=== PATIENT | male | born 1950 | race Caucasian/White ===

== ENCOUNTER 2018-04-17 13:29 | Outpatient (CLI) | payer BC ==
--- NOTE | 2018-04-17 15:14 | XRAY Report ---
TWO VIEW LUMBAR SPINE: 04/17/2018 CLINICAL INDICATION: Left pain. FINDINGS: Frontal and lateral views of the lumbar spine demonstrate moderate degenerative disk and facet disease. There is no evidence of fracture or subluxation. The bowel gas pattern is normal. IMPRESSION: MODERATE DEGENERATIVE CHANGES. TD: 04/17/2018 15:04
--- NOTE | 2018-04-17 15:14 | XRAY Report ---
LEFT HIP AND PELVIS: 04/17/2018 CLINICAL INDICATION: Left hip pain. FINDINGS: Frontal view of the hips and pelvis and frogleg lateral view of the left hip demonstrate mild osteoarthritis. There is no evidence of fracture. No foreign body is seen in the soft tissues. IMPRESSION: MILD LEFT HIP OSTEOARTHRITIS. TD: 04/17/2018 15:05
== END 2018-04-17 13:30 | disposition home or self-care (01) ==
LOC: DI 13:29
PROVIDERS: ATTEND Physician Assistant
DX: M51.36 Other intervertebral disc degeneration, lumbar region (principal); M47.896 Other spondylosis, lumbar region; M16.12 Unilateral primary osteoarthritis, left hip
CPT/HCPCS: 72100

== ENCOUNTER 2018-05-29 10:02 | Outpatient (CLI) | payer BC ==
[2018-05-29 11:35] LABS: HB2 TOTAL 15.4 g/dL; HEMOGLOBIN A1C 0.7 g/dL; HEMOGLOBIN A1C % 6.3 % (4.6-6.2)
[2018-05-30 13:57] LABS: HEPATITIS C ANTIBODY NON-REACTIVE (NON-REACTIVE)
== END 2018-05-29 10:03 | disposition home or self-care (01) ==
LOC: LAB 10:02
PROVIDERS: ATTEND Family Medicine
DX: E11.9 Type 2 diabetes mellitus without complications (principal); Z11.59 Encounter for screening for other viral diseases
CPT/HCPCS: 36415; 82043; 83036; 86803

== ENCOUNTER 2019-04-11 09:39 | Outpatient (CLI) | payer BC ==
[2019-04-11 10:13] LABS: ALBUMIN 3.7 g/dL (3.2-5.5); ALBUMIN/GLOBULIN RATIO 1.1 (1.0-2.2); BILIRUBIN,TOTAL 0.6 mg/dL (0.2-1.0); CALCIUM 9.2 mg/dL (8.5-10.3); CREATININE 1.1 mg/dL (0.6-1.2); TOTAL PROTEIN 7.1 g/dL (6.7-8.2)
[2019-04-11 10:17] LABS: HB2 TOTAL 14.9 g/dL; HEMOGLOBIN A1C 0.78 g/dL; HEMOGLOBIN A1C % 6.9 % (4.6-6.2)
== END 2019-04-11 09:40 | disposition home or self-care (01) ==
LOC: LAB 09:39
PROVIDERS: ATTEND Physician Assistant
DX: E11.65 Type 2 diabetes mellitus with hyperglycemia (principal); Z79.4 Long term (current) use of insulin
CPT/HCPCS: 36415; 80053; 83036

== ENCOUNTER 2019-04-19 08:45 | Outpatient (CLI) | payer BC | END 2019-04-19 08:46 | disposition home or self-care (01) | LOC: RT 08:45 | PROVIDERS: ATTEND Colon & Rectal Surgery | DX: Z01.810 Encounter for preprocedural cardiovascular examination (principal); C20 Malignant neoplasm of rectum | CPT/HCPCS: 93005 ==

== ENCOUNTER 2019-04-24 10:38 | Outpatient (CLI) | payer BC ==
[2019-04-24 11:23] LABS: HGB - HEMOGLOBIN 13.7 g/dL (14.0-18.0)
[2019-04-24 11:44] LABS: % IRON SATURATION 13 % (20-50); IRON 62 ug/dL (45-182); TOTAL IRON BINDING CAPACITY 466 ug/dL (250-450); TRANSFERRIN 333 mg/dL (180-329)
== END 2019-04-24 10:39 | disposition home or self-care (01) ==
LOC: LAB 10:38
PROVIDERS: ATTEND Colon & Rectal Surgery
DX: C20 Malignant neoplasm of rectum (principal)
CPT/HCPCS: 36415; 82728; 83540; 84466; 85014; 85018

== ENCOUNTER 2019-12-20 09:35 | Outpatient (CLI) | payer BC ==
[2019-12-20 10:36] LABS: HB2 TOTAL 13.9 g/dL; HEMOGLOBIN A1C 0.87 g/dL; HEMOGLOBIN A1C % 7.9 % (4.6-6.2)
[2019-12-20 10:38] LABS: CREATININE,URINE 132.7 mg/dL; MICROALBUM/CREATININE RATIO,UR 12.1 ug/mg (<30.0); MICROALBUMIN,URINE 1.6 mg/dL (0-300.0)
[2019-12-20 10:39] LABS: ALBUMIN 3.8 g/dL (3.2-5.5); ALBUMIN/GLOBULIN RATIO 1.1 (1.0-2.2); ALKALINE PHOSPHATASE 49 IU/L (42-121); ALT ALANINE AMINOTRANSFERASE 36 IU/L (10-60); AST ASPARTATE AMINOTRANSFERASE 28 IU/L (10-42); BILIRUBIN,TOTAL 0.7 mg/dL (0.2-1.0); BUN - BLOOD UREA NITROGEN 23 mg/dL (6-20); CARBON DIOXIDE - CO2 26 mmol/L (21-32); CHLORIDE 100 mmol/L (101-111); CHOL/HDL RATIO 5.3 (<5.0); CHOLESTEROL 154 mg/dL; GFR - MDRD 75 (>89); GLUCOSE 126 mg/dL (70-100); HDL CHOLESTEROL 29 mg/dL; LDL CHOLESTEROL,CALCULATED 81 mg/dL; LDL/HDL RATIO 2.8 (<3.6); SODIUM 137 mmol/L (135-145); TOTAL PROTEIN 7.2 g/dL (6.7-8.2); VLDL CHOLESTEROL 44 mg/dL
== END 2019-12-20 09:36 | disposition home or self-care (01) ==
LOC: LAB 09:35
PROVIDERS: ATTEND Physician Assistant
DX: E11.65 Type 2 diabetes mellitus with hyperglycemia (principal); I10 Essential (primary) hypertension; E78.5 Hyperlipidemia, unspecified
CPT/HCPCS: 36415; 80053; 80061; 82043; 82570; 83036; 83721

== ENCOUNTER 2020-01-28 08:13 | Outpatient (CLI) | payer BC ==
--- NOTE | 2020-01-29 11:57 | Ultrasound Report ---
Reason: SCREENING FOR AAA Procedure Date: 01/28/2020 Accession Number: [id number] / [id number] Procedure: US - Aorta Screening CPT Code: Final Report FULL RESULT: EXAM: AORTIC DOPPLER ULTRASOUND EXAM DATE: 01/28/2020 08:39 AM. CLINICAL HISTORY: Screening for AAA. COMPARISON: None. TECHNIQUE: Real-time sonographic imaging of retroperitoneal vascular structures, including color-flow, Doppler flow and spectral analysis was performed by the filament maker. Multiple customer field representative static images were saved for review. FINDINGS: Aorta: The abdominal aorta was adequately visualized. No evidence for abdominal aortic aneurysm. Aorta: Proximal: Sagittal AP 2.4 cm. Mid: Transverse 1.9 x 2.3 cm. Distal: Transverse 1.6 x 1.5 cm. Caliber: WNL: Yes. Plaque visualized: Yes. Iliacs: Right Iliac: Transverse 1.2 x 1.2 cm. Left Iliac: Transverse 1.2 x 1.4 cm. Iliac Vessels: The visualized proximal common iliac arteries are normal in caliber. Other: Echogenic probably fatty liver. IMPRESSION: No abdominal aortic aneurysm. RADIA
== END 2020-01-28 08:14 | disposition home or self-care (01) ==
LOC: DI 08:13
PROVIDERS: ATTEND Family Medicine
DX: Z13.6 Encounter for screening for cardiovascular disorders (principal)
CPT/HCPCS: 76706

== ENCOUNTER 2021-02-17 12:38 | Outpatient (CLI) | payer BC ==
--- OUTSIDE RECORDS SUMMARY | 2021-02-24 01:11 | EXTERNAL MEDICAL SUMMARY RPT | Continuity of Care Document ---
:1950 Demographics Phone Unavailable Preferred Language Unknown Marital Status Unknown Evangelical Affiliation Unknown Race Unknown Ethnic Group Unknown Author Organization [facility] Address [address] [phone] Phone Social History date description facility [phone]
== END 2021-02-17 12:39 | disposition critical access hospital (66) ==
LOC: EMS 12:38
PROVIDERS: ATTEND Emergency Medicine
DX: R55 Syncope and collapse (principal)
CPT/HCPCS: A0425; A0427

== ENCOUNTER 2021-02-17 13:01 | Emergency (ER) | payer BC ==
[2021-02-17 13:12] VITALS: BP 152/81
--- NOTE | 2021-02-17 13:19 | ED Physician Documentation ---
PD HPI SYNCOPE - Stated complaint Stated Complaint: SYNCOPE - Chief complaint Chief Complaint: Neuro - History obtained from History obtained from: Patient - Additional information Additional information: [id number]. He was in his usual state of health today running errands and had just walked in from the [employer] store having. A battery. On his way into the truck he started to feel dizzy, light sensitive, and then had a syncopal episode with cold sweats. Now feels pretty much back to normal. There is no associated chest pain. He does note exertional dyspnea over the last weeks or so. Review of Systems Ten Systems: 10 systems reviewed and negative Constitutional: reports: Sweats Cardiac: denies: Chest pain / pressure, Palpitations, Pedal edema, Calf pain Respiratory: reports: Dyspnea. denies: Cough, Hemoptysis, Wheezing PD PAST MEDICAL HISTORY - Allergies Allergies/Adverse Reactions: Allergies Allergy/AdvReac Type Severity Reaction Status Date / Time No Known Drug Allergies Allergy Verified 02/17/21 13:07 PD ED PE NORMAL - Vitals Vital signs reviewed: Yes - General General: Alert and oriented X 3, No acute distress - HEENT HEENT: PERRL, EOMI - Neck Neck: Supple, no meningeal sign, No bony TTP - Cardiac Cardiac: RRR, Other (3 out of 6 decrescendo blowing holosystolic murmur heard best at the apex) - Respiratory Respiratory: No respiratory distress, Clear bilaterally - Abdomen Abdomen: Soft, Non tender - Back Back: No CVA TTP, No spinal TTP - Derm Derm: Normal color, Warm and dry - Extremities Extremities: No edema, No calf tenderness / cord - Neuro Neuro: Alert and oriented X 3, Normal speech Results - Vitals Vitals: Vital Signs - 24 hr 02/17/21 13:07 Temperature 36.5 C Heart Rate 91 Respiratory 24 Rate Blood Pressure 152/81 H O2 Saturation 96 Oxygen O2 Source Room air - EKG (time done) 1327 Rate: Rate (enter#) (90) Rhythm: NSR (w pvcs) [place]: RAD Intervals: Normal MT QRS: Normal Ischemia: Normal ST segments - Labs Labs: Laboratory Tests 02/17/21 02/17/21 02/17/21 14:30 14:30 14:30 WBC 12.0 H RBC 4.95 Hgb 13.4 L Hct 41.7 L MCV 84.2 MCH 27.1 MCHC 32.1 RDW 15.0 Plt Count 291 MPV 9.4 Neut # (Auto) 9.8 H Lymph # (Auto) 1.1 L [place] # (Auto) 0.9 Eos # (Auto) 0.0 Baso # (Auto) 0.1 Absolute Nucleated RBC 0.00 Nucleated RBC % 0.0 Sodium 133 L Potassium 4.9 Chloride 97 L Carbon Dioxide 25 Anion Gap 11.0 BUN 26 H Creatinine 1.1 Estimated GFR (MDRD) 67 L Glucose 192 H Calcium 9.5 Magnesium 1.7 Total Bilirubin 0.5 AST 48 H ALT 52 Alkaline Phosphatase 52 Troponin I High Sens 39.0 H* B-Natriuretic Peptide Total Protein 7.2 Albumin 4.0 Globulin 3.2 Albumin/Globulin Ratio 1.3 02/17/21 14:30 WBC RBC Hgb Hct MCV MCH MCHC RDW Plt Count MPV Neut # (Auto) Lymph # (Auto) [place] # (Auto) Eos # (Auto) Baso # (Auto) Absolute Nucleated RBC Nucleated RBC % Sodium Potassium Chloride Carbon Dioxide Anion Gap BUN Creatinine Estimated GFR (MDRD) Glucose Calcium Magnesium Total Bilirubin AST ALT Alkaline Phosphatase Troponin I High Sens B-Natriuretic Peptide 37 Total Protein Albumin Globulin Albumin/Globulin Ratio PD MEDICAL DECISION MAKING - ED course ED course: 70yo gentleman with known aortic stenosis although the details are not known presents after a syncopal episode today. Echocardiogram was done and preliminary read shows LVH with EF of 40 to 45%. Trileaflet aortic valve with the leaflets being moderately to severely calcified. Moderate to severe aortic stenosis with peak/mean pressure gradient of 69/48. The aortic valve area by continuity equation is 0.99 cm. The aortic valve area is 0.44 cm/m with a maximum velocity of 4.6 m/s after a PVC or 4.1 m/s average. The dimensionless index for the aortic valve is 0.28. He also has trace TR. Aortic root is normal in size. I discussed the case with his cue worker and went over the diagnostics including mildly elevated troponin. We agreed that it is probably not from ischemia just from the stress of the aortic stenosis and he will see him rapidly for follow-up. Departure - Departure Disposition: 01 Home, Self Care Clinical Impression: Syncope Qualifiers: Syncope type: unspecified Qualified Code(s): R55 - Syncope and collapse Aortic stenosis Qualifiers: Cardiac valve disease etiology: etiology unspecified Qualified Code(s): I35.0 - Nonrheumatic aortic (valve) stenosis Condition: Stable Record reviewed to determine appropriate education?: Yes Comments: It seems that your aortic stenosis is worse today and that is likely would cause you to pass out. I discussed your case with your cue worker and his office will reach out to you to arrange for follow-up. Can continue current medications. Until cleared you probably should not drive in case this were to happen while driving. Return if worse. Discharge Date/Time: 02/17/21 16:53
[2021-02-17 14:35] LABS: BASOPHILS # (AUTO) 0.1 10^3/uL (0.0-0.1); BASOPHILS % (AUTO) 0.4 %; EOSINOPHILS % (AUTO) 0.3 %; HCT - HEMATOCRIT 41.7 % (42.0-52.0); HGB - HEMOGLOBIN 13.4 g/dL (14.0-18.0); LYMPHOCYTES # (AUTO) 1.1 10^3/uL (1.5-3.5); LYMPHOCYTES % (AUTO) 9.1 %; MEAN CORPUSCULAR HEMOGLOBIN 27.1 pg (27.0-31.0); MEAN CORPUSCULAR HGB CONC 32.1 g/dL (32.0-36.0); MEAN CORPUSCULAR VOLUME 84.2 fL (80.0-94.0); MEAN PLATELET VOLUME 9.4 fL (7.4-11.4); MONOCYTES # (AUTO) 0.9 10^3/uL (0.0-1.0); MONOCYTES % (AUTO) 7.8 %; NEUTROPHILS # (AUTO) 9.8 10^3/uL (1.5-6.6); NEUTROPHILS % (AUTO) 81.8 %; PLT - PLATELET COUNT 291 10^3/uL (130-450); RED BLOOD COUNT 4.95 10^6/uL (4.70-6.10)
[2021-02-17 14:52] LABS: ALBUMIN/GLOBULIN RATIO 1.3 (1.0-2.2); BILIRUBIN,TOTAL 0.5 mg/dL (0.2-1.0); CALCIUM 9.5 mg/dL (8.5-10.3); CREATININE 1.1 mg/dL (0.6-1.2); MAGNESIUM 1.7 mg/dL (1.7-2.8); POTASSIUM 4.9 mmol/L (3.5-5.0); TOTAL PROTEIN 7.2 g/dL (6.7-8.2)
--- OUTSIDE RECORDS SUMMARY | 2021-02-23 23:59 | EXTERNAL MEDICAL SUMMARY RPT | Continuity of Care Document ---
:1950 Demographics Phone Unavailable Preferred Language Unknown Marital Status Unknown Voodoo Affiliation Unknown Race Unknown Ethnic Group Unknown Author Organization [facility] Address [address] [phone] Phone Social History date description facility [phone]
== END 2021-02-17 16:53 | disposition home or self-care (01) ==
LOC: EDUNIT# → ED 13:01
DX: I35.0 Nonrheumatic aortic (valve) stenosis (principal); R77.8 Other specified abnormalities of plasma proteins
CPT/HCPCS: 36415; 80053; 83735; 83880; 84484; 85025; 93005; 93306; 99284

== ENCOUNTER 2021-03-06 00:25 | Outpatient (CLI) | payer BC | END 2021-03-06 00:26 | disposition critical access hospital (66) | LOC: EMS 00:25 | DX: R55 Syncope and collapse (principal) | CPT/HCPCS: A0425; A0427 ==

== ENCOUNTER 2021-03-06 00:32 | Emergency (ER) | payer BC ==
[2021-03-06] MEDS ORDERED: ONDANSETRON 4 MG/2 ML VIAL IVP STA (00:48)
[2021-03-06] MEDS ORDERED: ASPIRIN 325 MG TABLET PO STA (00:48)
--- OUTSIDE RECORDS SUMMARY | 2021-03-06 00:48 | EXTERNAL MEDICAL SUMMARY RPT | Continuity of Care Document ---
:1950 Demographics Phone Unavailable Preferred Language Unknown Marital Status Unknown Scientology Affiliation Unknown Race Unknown Ethnic Group Unknown Author Organization [facility] Address [address] [phone] Phone Social History date description facility [phone]
[2021-03-06 01:07] LABS: BASOPHILS # (AUTO) 0.1 10^3/uL (0.0-0.1); BASOPHILS % (AUTO) 0.4 %; EOSINOPHILS # (AUTO) 0.1 10^3/uL (0.0-0.7); EOSINOPHILS % (AUTO) 0.4 %; HCT - HEMATOCRIT 40.8 % (42.0-52.0); HGB - HEMOGLOBIN 12.9 g/dL (14.0-18.0); LYMPHOCYTES # (AUTO) 1.8 10^3/uL (1.5-3.5); LYMPHOCYTES % (AUTO) 14.4 %; MEAN CORPUSCULAR HEMOGLOBIN 26.7 pg (27.0-31.0); MEAN CORPUSCULAR HGB CONC 31.6 g/dL (32.0-36.0); MEAN CORPUSCULAR VOLUME 84.5 fL (80.0-94.0); MEAN PLATELET VOLUME 9.6 fL (7.4-11.4); MONOCYTES # (AUTO) 1.1 10^3/uL (0.0-1.0); MONOCYTES % (AUTO) 8.7 %; NEUTROPHILS # (AUTO) 9.3 10^3/uL (1.5-6.6); NEUTROPHILS % (AUTO) 75.6 %; PLT - PLATELET COUNT 276 10^3/uL (130-450); RED BLOOD COUNT 4.83 10^6/uL (4.70-6.10); RED CELL DISTRIBUTION WIDTH 14.8 % (12.0-15.0); WHITE BLOOD COUNT 12.4 x10^3/uL (4.8-10.8)
--- NOTE | 2021-03-06 01:15 | ED Physician Documentation ---
History of Present Illness - Stated complaint Stated Complaint: SYNCOPE, NAUSEA - Chief complaint Chief Complaint: Neuro - History obtained from History obtained from: Patient - Additonal information Additional information: 70yM with pmh moderate to severe Aortic stenosis, HTN, DM, p/w episode of chest pain around 7:30pm this evening while yelling at the dog, unresolved after he laid down, with diaphoresis and nausea, lasting about 45 minutes before symptoms completely remitted while lying in bed. patient had to go to the bathroom at 11:50pm and at that time strained on the toilet, subsequently slumping to the ground and losing consciousness. Per his , he was unconscious for about a minute, did not Experience incontinence of urine or stool or tongue bite.She states that he has had progressively worsening dyspnea on exertion and chest pain with exertion over the past couple months.Patient denies fever, cough, back pain, abdominal pain or urinary symptoms. He is asymptomatic at present as long as he stays still. Dr. Velasquez mechanical door repairer at [facility]. appointment 03/15 for eval of need for TAVR. Patient had severe aortic stenosis and poor cardiac output on echo done by Dr. Velasquez, his mechanical door repairer. Chemical stress test with Dr. Velasquez last summer. unsure of results. Review of Systems Ten Systems: 10 systems reviewed and negative Constitutional: denies: Fever, Chills Cardiac: reports: Chest pain / pressure Respiratory: reports: Dyspnea GI: reports: Nausea Neurologic: reports: Syncope PD PAST MEDICAL HISTORY - Past Medical History Past Medical History: Yes Cardiovascular: Hypertension, High cholesterol Respiratory: None Neuro: None Endocrine/Autoimmune: None GI: GERD : None HEENT: None Psych: None Musculoskeletal: None Derm: None - Past Surgical History Past Surgical History: No - Present Medications Home Medications: Ambulatory Orders Medication Instructions Recorded Confirmed Aspirin Chewable [St All 1 tab PO DAILY 03/06/21 03/06/21 Aspirin] Atorvastatin Calcium 40 mg PO DAILY 03/06/21 03/06/21 Insulin Detemir [Levemir Flexpen] 170 units SUBQ DAILY 03/06/21 03/06/21 Insulin Lispro [Humalog Kwikpen 20 units SUBQ TID 03/06/21 03/06/21 U-100] Lisinopril [Zestril] 20 mg PO DAILY 03/06/21 03/06/21 Metformin HCl [Metformin ER 1,000 mg PO BID 03/06/21 03/06/21 Osmotic] Multivitamin 1 tab PO DAILY 03/06/21 03/06/21 - Allergies Allergies/Adverse Reactions: Allergies Allergy/AdvReac Type Severity Reaction Status Date / Time No Known Drug Allergies Allergy Verified 03/06/21 00:48 - Social History Does the pt smoke?: No Smoking Status: Never smoker Does the pt drink ETOH?: No Does the pt have substance abuse?: No - Immunizations Immunizations are current?: Yes - POLST Patient has POLST: No PD ED PE NORMAL - Vitals Vital signs reviewed: Yes - General General: Alert and oriented X 3, No acute distress, Well developed/nourished - HEENT HEENT: Atraumatic, PERRL, EOMI - Neck Neck: Supple, no meningeal sign - Cardiac Cardiac: RRR - Respiratory Respiratory: No respiratory distress, Clear bilaterally - Abdomen Abdomen: Non tender, Non distended - Derm Derm: Normal color, Warm and dry - Extremities Extremities: No deformity - Neuro Neuro: Alert and oriented X 3, sub master 2-12 intact, No motor deficit, No sensory deficit, Normal speech - Psych Psych: Normal mood, Normal affect Results - Vitals Vitals: Vital Signs - 24 hr 03/06/21 03/06/21 03/06/21 00:32 01:07 01:28 Temperature 36.0 C L 35.8 C L 36.8 C Heart Rate 103 H 101 H 96 Respiratory 19 23 22 Rate Blood Pressure 126/62 126/62 112/73 O2 Saturation 89 L 92 95 03/06/21 03/06/21 03/06/21 01:57 02:11 02:42 Temperature Heart Rate 101 H 102 H 106 H Respiratory 19 22 30 H Rate Blood Pressure 112/73 108/56 L 116/72 O2 Saturation 98 100 95 03/06/21 03/06/21 03/06/21 03:00 03:30 03:43 Temperature 36.7 C 36.7 C Heart Rate 104 H 104 H 61 Respiratory 25 H 22 19 Rate Blood Pressure 129/66 121/68 147/89 H O2 Saturation 96 96 97 03/06/21 03/06/21 03/06/21 04:08 04:30 05:00 Temperature 36.7 C 36.7 C Heart Rate 102 H 100 101 H Respiratory 22 23 22 Rate Blood Pressure 115/48 L 99/69 112/54 L O2 Saturation 97 98 99 03/06/21 03/06/21 05:05 05:30 Temperature 36.7 C Heart Rate 100 105 H Respiratory 22 21 Rate Blood Pressure 112/54 L 116/61 O2 Saturation 100 95 Oxygen O2 Source Nasal cannula Oxygen Flow Rate 2 - EKG (time done) 0039 Rate: Rate (enter#) (100) Rhythm: Sinus tachycardia [place]: Normal Intervals: Normal SC QRS: Normal Ischemia: Normal ST segments - Labs Labs: Laboratory Tests 03/06/21 03/06/21 03/06/21 00:48 01:00 01:00 WBC 12.4 H RBC 4.83 Hgb 12.9 L Hct 40.8 L MCV 84.5 MCH 26.7 L MCHC 31.6 L RDW 14.8 Plt Count 276 MPV 9.6 Neut # (Auto) 9.3 H Lymph # (Auto) 1.8 [place] # (Auto) 1.1 H Eos # (Auto) 0.1 Baso # (Auto) 0.1 Absolute Nucleated RBC 0.00 Nucleated RBC % 0.0 D-Dimer 396.1 H Sodium 136 Potassium 4.3 Chloride 98 L Carbon Dioxide 24 Anion Gap 14.0 H BUN 34 H Creatinine 1.3 H Estimated GFR (MDRD) 55 L Glucose 191 H Lactic Acid Calcium 9.4 Total Bilirubin 0.7 AST 54 H ALT 64 H Alkaline Phosphatase 67 Troponin I High Sens B-Natriuretic Peptide Total Protein 6.7 Albumin 3.9 Globulin 2.8 Albumin/Globulin Ratio 1.4 Lipase 23 Nasal Adenovirus (PCR) Nasal B. parapertussis DNA (PCR) Nasal Coronavir 229E PCR Nasal Coronavir HKU1 PCR Nasal Coronavir NL63 PCR Nasal Coronavir OC43 PCR Nasal Enterovir/Rhinovir PCR Nasal Influenza B PCR Nasal Influenza A PCR Nasal Parainfluen 1 PCR Nasal Parainfluen 2 PCR Nasal Parainfluen 3 PCR Nasal Parainfluen 4 PCR Nasal RSV (PCR) Nasal B.pertussis DNA PCR Nasal C.pneumoniae (PCR) [place] Human Metapneumo PCR Nasal M.pneumoniae (PCR) Nasal SARS-CoV-2 (PCR) 03/06/21 03/06/21 03/06/21 01:00 01:00 01:39 WBC RBC Hgb Hct MCV MCH MCHC RDW Plt Count MPV Neut # (Auto) Lymph # (Auto) [place] # (Auto) Eos # (Auto) Baso # (Auto) Absolute Nucleated RBC Nucleated RBC % D-Dimer Sodium Potassium Chloride Carbon Dioxide Anion Gap BUN Creatinine Estimated GFR (MDRD) Glucose Lactic Acid Calcium Total Bilirubin AST ALT Alkaline Phosphatase Troponin I High Sens 40.5 H* B-Natriuretic Peptide 72 Total Protein Albumin Globulin Albumin/Globulin Ratio Lipase Nasal Adenovirus (PCR) NOT DETECTED Nasal B. parapertussis DNA (PCR) NOT DETECTED Nasal Coronavir 229E PCR NOT DETECTED Nasal Coronavir HKU1 PCR NOT DETECTED Nasal Coronavir NL63 PCR NOT DETECTED Nasal Coronavir OC43 PCR NOT DETECTED Nasal Enterovir/Rhinovir PCR NOT DETECTED Nasal Influenza B PCR NOT DETECTED Nasal Influenza A PCR NOT DETECTED Nasal Parainfluen 1 PCR NOT DETECTED Nasal Parainfluen 2 PCR NOT DETECTED Nasal Parainfluen 3 PCR NOT DETECTED Nasal Parainfluen 4 PCR NOT DETECTED Nasal RSV (PCR) NOT DETECTED Nasal B.pertussis DNA PCR NOT DETECTED Nasal C.pneumoniae (PCR) NOT DETECTED [place] Human Metapneumo PCR NOT DETECTED Nasal M.pneumoniae (PCR) NOT DETECTED Nasal SARS-CoV-2 (PCR) NOT DETECTED 03/06/21 02:05 WBC RBC Hgb Hct MCV MCH MCHC RDW Plt Count MPV Neut # (Auto) Lymph # (Auto) [place] # (Auto) Eos # (Auto) Baso # (Auto) Absolute Nucleated RBC Nucleated RBC % D-Dimer Sodium Potassium Chloride Carbon Dioxide Anion Gap BUN Creatinine Estimated GFR (MDRD) Glucose Lactic Acid 2.9 H Calcium Total Bilirubin AST ALT Alkaline Phosphatase Troponin I High Sens B-Natriuretic Peptide Total Protein Albumin Globulin Albumin/Globulin Ratio Lipase Nasal Adenovirus (PCR) Nasal B. parapertussis DNA (PCR) Nasal Coronavir 229E PCR Nasal Coronavir HKU1 PCR Nasal Coronavir NL63 PCR Nasal Coronavir OC43 PCR Nasal Enterovir/Rhinovir PCR Nasal Influenza B PCR Nasal Influenza A PCR Nasal Parainfluen 1 PCR Nasal Parainfluen 2 PCR Nasal Parainfluen 3 PCR Nasal Parainfluen 4 PCR Nasal RSV (PCR) Nasal B.pertussis DNA PCR Nasal C.pneumoniae (PCR) Barak Human Metapneumo PCR Nasal M.pneumoniae (PCR) Nasal SARS-CoV-2 (PCR) PD MEDICAL DECISION MAKING - ED course ED course: d/w Dr. Lozano mechanical door repairer who agrees patient will need transfer, possible CT surgery consult given severe aortic stenosis. D/w Dr. Huynh, hospitalist who accepts the patient. We discussed that his aortic stenosis is most likely cause for his symptoms however the patient is having some mild tachycardia and o2 sat in low 90s on RA requiring 2L oxygen therefore I am adding a d-dimer to evaluate for PE which can be followed up upon transfer. D-dimer 396. Age adjusted d-dimer within normal limits. Discussed with Dr. Huynh who is aware. Departure - Departure Disposition: 02 Transfer Acute Care Hosp Clinical Impression: NSTEMI (non-ST elevated myocardial infarction), Severe aortic stenosis
[2021-03-06 01:20] LABS: ALBUMIN 3.9 g/dL (3.2-5.5); ALBUMIN/GLOBULIN RATIO 1.4 (1.0-2.2); BILIRUBIN,TOTAL 0.7 mg/dL (0.2-1.0); CALCIUM 9.4 mg/dL (8.5-10.3); CREATININE 1.3 mg/dL (0.6-1.2); POTASSIUM 4.3 mmol/L (3.5-5.0); TOTAL PROTEIN 6.7 g/dL (6.7-8.2)
[2021-03-06 02:31] LABS: B. PARAPERTUSSIS- RESP PCR PAN NOT DETECTED; B. PERTUSSIS- RESP PCR PANEL NOT DETECTED; C. PNEUMONIAE- RESP PCR PANEL NOT DETECTED; CORONAVIRUS 229E-RESP PCR NOT DETECTED; CORONAVIRUS HKU1-RESP PCR NOT DETECTED; CORONAVIRUS NL63-RESP PCR NOT DETECTED; CORONAVIRUS OC43-RESP PCR NOT DETECTED; HUMAN METAPNEUMOVIRUS NOT DETECTED; INFLUENZA A- RESP PCR PANEL NOT DETECTED; INFLUENZA B - RESP PCR PANEL NOT DETECTED; M. PNEUMONIAE- RESP PCR PANEL NOT DETECTED; PARAINFLUENZA VIRUS 1 NOT DETECTED; PARAINFLUENZA VIRUS 2 NOT DETECTED; PARAINFLUENZA VIRUS 3 NOT DETECTED; PARAINFLUENZA VIRUS 4 NOT DETECTED; RHINOVIRUS/ENTEROVIRUS NOT DETECTED; RSV- RESP PCR PANEL NOT DETECTED; SARS-CoV-2 -RESP PCR PANEL NOT DETECTED
[2021-03-06] MEDS ORDERED: ENOXAPARIN 100 MG/ML SYRINGE SUBQ STA (06:12)
[2021-03-06] MEDS ORDERED: METOPROLOL TARTRATE 50 MG TABLET PO STA (06:13)
[2021-03-06] MEDS ORDERED: IOPAMIDOL-300 100 ML VIAL ONE (06:16)
[2021-03-06 06:41] VITALS: BP 129/67
--- NOTE | 2021-03-06 09:38 | ED Physician Documentation ---
ED Addendum - Addendum Addendum: 03/06/21 09:38 Took call from radiologist who was concerned about the chest x-ray appearance of the mediastinum. He had an echo a couple weeks ago demonstrating a normal ascending aorta, and given the lack of chest pain I am not concerned for dissection. He had already been transferred to [facility] but I do not think a specific work-up for dissection is necessary given the clinical circumstance.
--- NOTE | 2021-03-06 09:41 | XRAY Report ---
PROCEDURE: Chest 1 View X-Ray INDICATIONS: Chest Pain TECHNIQUE: One view of the chest was acquired. COMPARISON: None FINDINGS: Surgical changes and devices: Overlying EKG wires.. Lungs and pleura: There is mild prominence of the interstitial markings and bronchial wall thickening . No focal consolidation, pneumothorax, or pleural effusion. Mediastinum: Heart size is within normal limits. Mild prominence of the superior mediastinum. Bones and chest wall: No suspicious bony lesions. Overlying soft tissues appear unremarkable. IMPRESSION: Mild prominence of interstitial markings may suggest atypical infection, lower airway inflammation, o r interstitial edema. Prominence of the superior mediastinum. Given history of aortic stenosis, descending aortic aneurysm or dissection is not completely excluded. Recommend correlation with echo or cross-sectional imaging if clinically warranted. Findings were discussed over the telephone with ER provider Dr. Desir from [facility] at approximately 0840 hours [place] standard time on 03/06/2021. Reviewed by: Rajesh Pa DO on 03/06/2021 8:40 AM PADMA Approved by: Rajesh Pa DO on 03/06/2021 8:40 AM PADMA Station ID: [id number]
== END 2021-03-06 07:09 | disposition short-term general hospital (02) ==
LOC: EDUNIT# → ED 00:32
DX: I21.4 Non-ST elevation (NSTEMI) myocardial infarction (principal); I35.0 Nonrheumatic aortic (valve) stenosis; I10 Essential (primary) hypertension; E11.9 Type 2 diabetes mellitus without complications; Z79.4 Long term (current) use of insulin; Z20.822 Contact with and (suspected) exposure to COVID-19
CPT/HCPCS: 0202U; 36415; 71045; 80053; 83605; 83690; 83880; 84484; 85025; 85379; 93005; 96372; 96374; 99285; A9270; J1650

== ENCOUNTER 2021-03-06 07:07 | Outpatient (CLI) | payer BC | END 2021-03-06 07:08 | disposition short-term general hospital (02) | LOC: EMS 07:07 | PROVIDERS: ATTEND Emergency Medicine | DX: I21.4 Non-ST elevation (NSTEMI) myocardial infarction (principal); I35.0 Nonrheumatic aortic (valve) stenosis; R55 Syncope and collapse; R07.9 Chest pain, unspecified | CPT/HCPCS: A0425; A0426 ==

== ENCOUNTER 2021-04-20 09:21 | Outpatient (CLI) | payer OTHER ==
[2021-04-20 10:14] LABS: ALBUMIN 4.2 g/dL (3.2-5.5); ALBUMIN/GLOBULIN RATIO 1.4 (1.0-2.2); BILIRUBIN,TOTAL 0.5 mg/dL (0.2-1.0); CALCIUM 9.7 mg/dL (8.5-10.3); POTASSIUM 4.1 mmol/L (3.5-5.0); TOTAL PROTEIN 7.2 g/dL (6.7-8.2)
[2021-04-20 12:43] LABS: ESTIMATED AVERAGE GLUCOSE 183 mg/dL (70-100)
[2021-04-20 13:04] LABS: CREATININE,URINE 137.9 mg/dL; MICROALBUM/CREATININE RATIO,UR 13.8 ug/mg (<30.0); MICROALBUMIN,URINE 1.9 mg/dL (0-300.0)
== END 2021-04-20 09:22 | disposition home or self-care (01) ==
LOC: LAB 09:21
PROVIDERS: ATTEND Family Medicine
DX: E11.9 Type 2 diabetes mellitus without complications (principal); I10 Essential (primary) hypertension
CPT/HCPCS: 36415; 80053; 82043; 82570; 83036; 83835

== ENCOUNTER 2021-07-22 16:53 | Outpatient (CLI) | payer BC, OTHER | END 2021-07-22 16:54 | disposition home or self-care (01) | LOC: COV 16:53 | PROVIDERS: ATTEND Family Medicine | DX: R53.83 Other fatigue (principal); R19.7 Diarrhea, unspecified; R11.2 Nausea with vomiting, unspecified; Z20.822 Contact with and (suspected) exposure to COVID-19 ==

== ENCOUNTER 2021-08-13 11:09 | Outpatient (CLI) | payer OTHER ==
[2021-08-13 12:30] LABS: ESTIMATED AVERAGE GLUCOSE 212 mg/dL (70-100)
== END 2021-08-13 11:10 | disposition home or self-care (01) ==
LOC: LAB 11:09
PROVIDERS: ATTEND Family Medicine
DX: E11.65 Type 2 diabetes mellitus with hyperglycemia (principal); Z79.4 Long term (current) use of insulin
CPT/HCPCS: 36415; 83036

== ENCOUNTER 2021-08-24 13:54 | Outpatient (CLI) | payer OTHER ==
[2021-08-24 20:28] LABS: ESTIMATED AVERAGE GLUCOSE 212 mg/dL (70-100)
== END 2021-08-24 13:55 | disposition home or self-care (01) ==
LOC: LAB 13:54
PROVIDERS: ATTEND Family Medicine
DX: E11.65 Type 2 diabetes mellitus with hyperglycemia (principal); Z79.4 Long term (current) use of insulin
CPT/HCPCS: 36415; 83036

== ENCOUNTER 2021-10-04 09:46 | Outpatient (CLI) | payer OTHER | END 2021-10-04 09:47 | disposition home or self-care (01) | LOC: LAB 09:46 | PROVIDERS: ATTEND Internal Medicine Endocrinology, Diabetes & Metabolism | DX: I10 Essential (primary) hypertension (principal) | CPT/HCPCS: 36415; 83835 ==